=== PATIENT | male | born 1970 | race Caucasian/White ===

== ENCOUNTER 2022-12-29 14:23 | Emergency (ER) | payer BC, OTHER ==
[2022-12-29 14:42] VITALS: PULSE 74; RESP 20
[2022-12-29] MEDS ORDERED: Adacel Vial IM ONE ×2 (14:42→14:51)
[2022-12-29] MEDS ORDERED: XYLOCAINE 1% HCL 20 ML MDV ONE (14:47)
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
[2022-12-29 15:33] VITALS: BP 136/80; TEMP 97.8
[2022-12-29 15:37] VITALS: O2SAT 97
== END 2022-12-29 15:35 | disposition home or self-care (01) ==
LOC: ED 14:23
DX: S61.212A Laceration without foreign body of right middle finger without damage to nail, initial encounter (principal); S61.214A Laceration without foreign body of right ring finger without damage to nail, initial encounter; W26.8XXA Contact with other sharp object(s), not elsewhere classified, initial encounter; Y92.63 Factory as the place of occurrence of the external cause; Y99.0 Civilian activity done for income or pay; Z28.310 Unvaccinated for COVID-19; Z72.0 Tobacco use; Z23 Encounter for immunization
CPT/HCPCS: 12002; 80307; 90471; 90715; 96372; 99282